=== PATIENT | female | born 1975 | race Caucasian/White ===

== ENCOUNTER 2024-01-12 17:21 | Emergency (ER) | payer BC ==
[~2024-01-12] VITALS: Ht 170.2 cm; Wt 79.4 kg
[2024-01-12] MEDS ORDERED: CITALOPRAM20 MG/10 M PO (17:27)
[2024-01-12] MEDS ORDERED: KETOROLAC TROMETHAMINE 15 MG VIAL IV ONE (18:15)
[2024-01-12 18:42] LABS: HEMATOCRIT 37.1 % (36.0-45.00); HEMOGLOBIN 12.9 g/dL (12.0-15.00); MEAN CELL VOLUME 92.8 fL (80.00-100.00); MEAN CORPUSCULAR HEMOGLOBIN 32.2 pg (27.00-32.0); MEAN CORPUSCULAR HGB CONC 34.7 g/dl (32.0-36.0); PLATELET COUNT 287 K/uL (150-450); RED BLOOD COUNT 3.99 M/uL (4.00-6.00); RED CELL DISTRIBUTION WIDTH 12.8 % (11.5-14.5)
== END 2024-01-12 19:48 | disposition home or self-care (01) ==
LOC: ER 17:21
PROVIDERS: General Practice
DX: S76.391A Other specified injury of muscle, fascia and tendon of the posterior muscle group at thigh level, right thigh, initial encounter (principal); W19.XXXA Unspecified fall, initial encounter; Y93.89 Activity, other specified; Y92.89 Other specified places as the place of occurrence of the external cause; Y99.8 Other external cause status